=== PATIENT | male | born 1990 | race Two or more races ===

== ENCOUNTER 2016-08-20 21:25 | Emergency (ER) | payer MEDICAID ==
[~2016-08-20] VITALS: Ht 182.9 cm; Wt 79.4 kg
[2016-08-20] MEDS ORDERED: TdaP Vaccine 0.5ml Syr IM ONE (21:30)
[2016-08-20] MEDS ORDERED: ceFAZolin 1gm/50ml Premix 50 ML IVPB ONE (21:30)
[2016-08-20] MEDS ORDERED: Morphine Sulfate 4mg/ml Inj IVP ONE (21:30)
[2016-08-20] MEDS ORDERED: Ketorolac 30mg Inj IM ONE (21:30)
[2016-08-20 21:34] VITALS: BP 119/55
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
[2016-08-20 22:02] LABS: BASOPHILS % (AUTO) 1.3 % (0.0-2.0); EOSINOPHILS % (AUTO) 2.9 % (0.0-3.0); LYMPHOCYTES % (AUTO) 45.3 % (20.0-45.0); MEAN CORPUSCULAR HEMOGLOBIN 29.8 PG (27.0-31.0); MEAN CORPUSCULAR VOLUME 90 FL (80-99); MEAN PLATELET VOLUME 7.5 FL (6.5-10.1); MONOCYTES % (AUTO) 6.1 % (1.0-10.0); NEUTROPHILS % (AUTO) 44.4 % (45.0-75.0); PLATELET COUNT 206 K/UL (150-450); RED BLOOD COUNT 5.19 M/UL (4.70-6.10); RED CELL DISTRIBUTION WIDTH 12.6 % (11.6-14.8); WHITE BLOOD COUNT 11.4 K/UL (4.8-10.8)
[2016-08-20 22:15] LABS: INR 1.2 (0.9-1.1); PROTHROMBIN TIME 12.7 SEC (9.30-11.50)
[2016-08-20 22:36] LABS: ALANINE AMINOTRANSFERASE 10 U/L (3-41); ALBUMIN/GLOBULIN RATIO 1.8 (1.0-2.7); ANION GAP 15 (5-15); ASPARTATE AMINO TRANSFERASE 18 U/L (5-40); CALCIUM 9.1 mg/dL (8.6-10.2); CARBON DIOXIDE 27 mEQ/L (20-30); CHLORIDE 99 mEQ/L (98-107); CREATININE 0.8 mg/dL (0.7-1.2); GLOMERULAR FILTRATION RATE > 60 mL/min (>60); HEMOLYSIS 10; POTASSIUM 3.8 mEQ/L (3.4-4.9); SODIUM 141 mEQ/L (135-145); TOTAL PROTEIN 7.2 g/dL (6.6-8.7)
[2016-08-20 23:03] VITALS: BP 129/75
[2016-08-20] MEDS ORDERED: NKM (23:43)
[2016-08-21] VITALS (8 sets, daily range): BP systolic 110–123; BP diastolic 53–74
[2016-08-21] MEDS ORDERED: Lidocaine 1% Plain 30 ml INJ ONE (01:20)
[2016-08-21] MEDS ORDERED: Lidocaine 1% MPF 10mg/ml 5ml INJ ONE (01:30)
[2016-08-21] MEDS ORDERED: Surgicel 4in x 8in TOPIC ONE ×2 (04:15→07:29)
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
== END 2016-08-21 10:48 | disposition short-term general hospital (02) ==
LOC: EMR 21:38 → EDBEDREQ 08-21 07:21 → 4E 08-21 07:28 → UNDOADMIN 08-21 07:28 → EDBEDREQ 08-21 08:27 → CANBEDREQ 08-21 08:50 → EMR 08-21 10:48
DX: S92.312B Displaced fracture of first metatarsal bone, left foot, initial encounter for open fracture (principal); X95.9XXA Assault by unspecified firearm discharge, initial encounter; Y92.9 Unspecified place or not applicable; Z23 Encounter for immunization; F17.200 Nicotine dependence, unspecified, uncomplicated; M79.5 Residual foreign body in soft tissue
CPT/HCPCS: 36415; 80053; 85025; 85610; 85730; 86850; 86900; 86901; 87070; 87205; 90471; 90715; 96372; 96374; 96375; J2405

== ENCOUNTER 2016-11-26 20:25 | Emergency (ER) | payer MEDICAID, OTHER ==
[~2016-11-26] VITALS: Ht 185.4 cm; Wt 77.1 kg
[~2016-11-26 20:25] MED LIST: NKM
[2016-11-26] MEDS ORDERED: Lidocaine 2% Visc 15ml soln ORAL ONE (20:45)
[2016-11-26] MEDS ORDERED: Lidocaine 1% MPF 10mg/ml 5ml INJ ONE (20:45)
--- NOTE | 2016-11-26 21:12 | Emergency Room Report ---
History of Present Illness General Chief Complaint: Sore Throat Source: Patient Present Illness HPI 26 y/o male c/o sore throat x 3 days. Assoc sxs include sore throat with difficulty swallowing saliva. No other physical complaints or modifying factors. Not taking any current medications. Denies any current n/v/f/c/d, abd pain, back pain, neck pain, photophobia, phonophobia, CP, SOB or headache. Allergies: Coded Allergies: No Known Allergies (Unverified , 08/20/16) Patient History Past Medical History: see triage record Past Surgical History: none Pertinent Family History: none Immunizations: UTD Reviewed Nursing Documentation: PMH: Agreed, PSxH: Agreed Nursing Documentation-PMH Past Medical History: No Stated History Hx Asthma: Yes Review of Systems All Other Systems: negative except mentioned in HPI Physical Exam Vital Signs Date Time Temp Pulse Resp B/P Pulse Ox O2 Delivery O2 Flow Rate FiO2 11/26/16 20:32 99.7 98 16 120/81 97 Room Air Sp02 EP Interpretation: reviewed, normal General Appearance: no apparent distress, alert, GCS 15, non-toxic, other - uncomfortable Head: normocephalic, atraumatic Eyes: bilateral eye PERRL, bilateral eye normal inspection ENT: hearing grossly normal, no angioedema, other - uvula deviates to the left with peritonsilar abscess present on right side. No trismus. Neck: normal inspection Respiratory: chest non-tender, lungs clear, normal breath sounds, speaking full sentences Cardiovascular #1: regular rate, rhythm, no edema Neurologic: alert, oriented x3, responsive, motor strength/tone normal, sensory intact Psychiatric: judgement/insight normal, memory normal, mood/affect normal, no suicidal/homicidal ideation Skin: normal color, no rash, warm/dry, well hydrated Procedures Additional Procedure Procedure Narrative Under sterile conditions and going over risks and benefits and verbal consent obtained, numbed area with viscous lidocaine gargle. Approximately 2cc of lidocaine 1% without epi was injected with 27g 1" needle with sheath still on and 1cm removed from tip to act as guide to protect carotid artery was inserted into abscess. An 18g needle that had sheath with 1cm removed from tip to act as protective stopper from penetrating carotid artery was then advanced into the abscess and scant amount of purulent fluid was aspirated from abscess. Multiple attempts to aspirate additional fluid was completed without success.The patient was instructed in post procedure care. Patient tolerated procedure well w/ minimal blood loss. Medical Decision Making PA Attestation Dr. Sierra is my supervising physician with whom patient management has been discussed with. Diagnostic Impression: Primary Impression: Peritonsillar abscess ER Course Pt. presents to the ED c/o sore throat Ddx considered but are not limited to viral pharyngitis, bacterial pharyngitis, peritonsillar abscess, tonsils stone and meningitis Vital signs: are WNL, pt. is afebrile H&PE are most consistent with peritonsilar abscess ORDERS: Clindamycin 900mg, Solu-medrol 125mg, 30mg Toradol, Viscous Lidocaine and 1% Lidocaine w/o epi for anesthesia. ED INTERVENTIONS: Aspiration of Abscess. DISCHARGE: At this time pt. is stable for d/c to home. Will provide printed patient care instructions, and any necessary prescriptions. Care plan and follow up instructions have been discussed with the patient prior to discharge. Last Vital Signs Date Time Temp Pulse Resp B/P Pulse Ox O2 Delivery O2 Flow Rate FiO2 11/26/16 20:32 99.7 98 16 120/81 97 Room Air Disposition: HOME, SELF-CARE Condition: Stable Scripts Clindamycin Hcl (CLINDAMYCIN HCL) 300 Mg Capsule 300 MG ORAL TID for 10 Days, #30 CAP Prov: MARGARITO ZHENG 11/26/16 Patient Instructions: Peritonsillar Abscess Additional Instructions: Take medication as directed. Advised patient to use salt water gargle PRN. Advised patient to use chloraseptic as needed for throat pain in addition to APAP Q4H. Patient advised they can take Ibuprofen and Tylenol Q6H together for fever control as well. If sxs worsen or don't improve, please return sooner. Go to the ER if you develop SOB, CP, Rash, photophobia, neck pain, throat swelling occur, go to the ER immediately. MARGARITO ZHENG November 26, 2016 21:11
[2016-11-26 21:15] VITALS: BP 139/82
[2016-11-26] MEDS ORDERED: Solu-MEDROL 125mg Inj IVP ONE (21:15)
[2016-11-26] MEDS ORDERED: Ketorolac 30mg Inj IV ONE (21:15)
[2016-11-26] MEDS ORDERED: Clindamycin 900mg 50 ML IVPB ONE (21:15)
[2016-11-26] MEDS ORDERED: CLINDAMYCIN HC300 MG ORAL (21:30)
[2016-11-26 22:15] VITALS: BP 123/63
== END 2016-11-26 22:15 | disposition home or self-care (01) ==
LOC: EMR 21:19
DX: J36 Peritonsillar abscess (principal); J45.909 Unspecified asthma, uncomplicated
CPT/HCPCS: 10060; 96374; 96375; 99284; J1885; J2930; S0077

== ENCOUNTER 2017-09-07 19:47 | Emergency (ER) | payer OTHER ==
[~2017-09-07] VITALS: Ht 182.9 cm; Wt 79.4 kg
[~2017-09-07 19:47] MED LIST changes: +CLINDAMYCIN HC300 MG ORAL
[2017-09-07] MEDS ORDERED: cefTRIAXone 1 GM in NS 55 ML IVPB ONE (20:15)
[2017-09-07] MEDS ORDERED: Dexamethasone 4mg/ml vial IVP ONE (20:15)
[2017-09-07] MEDS ORDERED: Hurricaine 20% Spray ORO ONE (20:15)
[2017-09-07] MEDS ORDERED: Lidocaine 1% 10mg/ml/Epi 0.005mg/ml 30ml vial INJ ONE (20:15)
[2017-09-07] MEDS ORDERED: Lidocaine 2% Visc 15ml soln ORAL ONE (20:30)
--- NOTE | 2017-09-07 21:21 | Emergency Room Report ---
History of Present Illness General Chief Complaint: Sore Throat Source: Patient Present Illness HPI 7 days of worsening R throat pain and swelling. Feverish and pain with swallowing. Change in voice. Pain rated 8/10, constant, burning and pressure, radiates slightly towards ear and neck. Able to swallow fluids. Salt water gargles not help. Had SPRINKLING SYSTEM IRRIGATOR last year. Aspirated but "nothing came out". No cough, dyspnea, neck stiffness, change vision, NVD, dysuria, diabetes, rashes , joint pain. Allergies: Coded Allergies: OXYCODONE (Verified Allergy, Unknown, 09/07/17) itchy Patient History Past Medical History: see triage record Social History: Reports: smoking Social History Narrative [employer] (works outside) Reviewed Nursing Documentation: PMH: Agreed, PSxH: Agreed Nursing Documentation-PMH Hx Asthma: Yes - bronchitis Review of Systems All Other Systems: negative except mentioned in HPI Physical Exam Vital Signs Date Time Temp Pulse Resp B/P (MAP) Pulse Ox O2 Delivery O2 Flow Rate FiO2 09/07/17 19:50 100.5 104 18 128/79 98 Room Air 100.6 Sp02 EP Interpretation: reviewed, normal General Appearance: well appearing, no apparent distress, GCS 15, non-toxic Head: normocephalic Eyes: bilateral eye normal inspection, bilateral eye PERRL ENT: TMs + canals normal, moist mucus membranes, tonsillar swelling, pharyngeal erythema, other - SPRINKLING SYSTEM IRRIGATOR R Neck: full range of motion, supple, no meningismus Respiratory: lungs clear, normal breath sounds Cardiovascular #1: regular rate, rhythm Cardiovascular #2: 2+ radial (R) Gastrointestinal: normal inspection, normal bowel sounds, non tender, no mass, non-distended Musculoskeletal: back normal, gait/station normal, normal range of motion Neurologic: alert, oriented x3, grossly normal Psychiatric: mood/affect normal Skin: normal inspection, no rash, warm/dry Procedures Incision and Drainage Incision and Drainage : Consent: Verbal Blade Size: 11 Wound Location: other - R tonsil Wound's Depth, Shape: other - tonsilar tissue Wound Explored: contaminated - pus drained Anesthesia: Lidocaine w/ Epi Volume Anesthetic (ccs): 1 Patient Tolerated: Well Complications: None Progress After H2O2 prep, 1% lido with epi with 27 ga needle. Attempt aspirate with 18 ga spinal needle (only .5 ml obtained of pus). More lidocaine used and tonsil incised. Pus obtained. Used Kellys to open and express more pus. Tolerated fairly well (some gagging). Rinsed with H2O2. Improved voice and pain after procedure. Medical Decision Making Diagnostic Impression: Primary Impression: Peritonsillar abscess ER Course Patient with peritonsilar abscess. Needs I and D and also antibiotics. Will also give IV hydration. Also will give dose of decadron. See procedure note. Improved with treatment. Instructed to return if swelling recurs or not doing well. Patient stable for outpatient observation and treatment. Last Vital Signs Date Time Temp Pulse Resp B/P (MAP) Pulse Ox O2 Delivery O2 Flow Rate FiO2 09/07/17 22:10 97.3 94 18 139/82 100 Room Air 97.3 Status: improved Disposition: HOME, SELF-CARE Condition: Improved Scripts Ibuprofen* (MOTRIN*) 600 Mg Tablet 600 MG ORAL Q6H Y for For Pain, #20 TAB Prov: Daniel Garvey M.D. 09/07/17 Hydrocodone Bit/Acetaminophen 5-325* (NORCO 5-325*) 1 Each Tablet 1 TAB ORAL Q6H Y for For Pain, #10 TAB 0 Refills Prov: Daniel Garvey M.D. 09/07/17 Amoxicillin/Potassium Clav 500-125 Tablet* (AUGMENTIN 500-125 TABLET*) 1 Each Tablet 1 TAB ORAL THREE TIMES A DAY, #21 TAB Prov: Daniel Garvey M.D. 09/07/17 Referrals: [facility],REFERRING (PCP) Daniel Garvey M.D. Sep 07, 2017 21:21
[2017-09-07 21:50] VITALS: BP 139/82
[2017-09-07] MEDS ORDERED: AUGMENTIN 500-1 EACH ORAL (21:50)
[2017-09-07] MEDS ORDERED: NORCO 5-325 TA1 EACH ORAL (21:50)
[2017-09-07] MEDS ORDERED: IBUPROFEN600 MG ORAL (21:50)
[2017-09-07 22:10] VITALS: BP 139/82
== END 2017-09-07 22:10 | disposition home or self-care (01) ==
LOC: EMR 20:20
DX: J36 Peritonsillar abscess (principal); J45.909 Unspecified asthma, uncomplicated
CPT/HCPCS: 10060; 96361; 96365; 96375; 99284; J0696; J1100; 96374

== ENCOUNTER 2017-12-03 23:47 | Emergency (ER) | payer OTHER ==
[~2017-12-03] VITALS: Ht 182.9 cm; Wt 80.7 kg
[~2017-12-03 23:47] MED LIST changes: +AUGMENTIN 500-1 EACH ORAL; +IBUPROFEN600 MG ORAL; +NORCO 5-325 TA1 EACH ORAL
[2017-12-03 23:56] VITALS: BP 120/73
[2017-12-04] MEDS ORDERED: GABAPENTIN100 MG ORAL (00:29)
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
[2017-12-04 00:32] VITALS: BP 0/0
== END 2017-12-04 00:32 | disposition home or self-care (01) ==
LOC: EMR 12-04 00:18
DX: G57.92 Unspecified mononeuropathy of left lower limb (principal)
CPT/HCPCS: 99283

== ENCOUNTER 2018-05-03 00:12 | Emergency (ER) | payer OTHER ==
[~2018-05-03] VITALS: Ht 182.9 cm; Wt 83.9 kg
[~2018-05-03 00:12] MED LIST changes: +GABAPENTIN100 MG ORAL
[2018-05-03 00:37] VITALS: BP 119/68
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
[2018-05-03] MEDS ORDERED: Norco 5mg/325mg tab ORAL ONE (01:15)
[2018-05-03 01:53] LABS: APPEARANCE,URINE CLEAR; BILIRUBIN, URINE NEGATIVE (NEGATIVE); GLUCOSE, URINE (UA) NEGATIVE (NEGATIVE); KETONES,URINE NEGATIVE (NEGATIVE); LEUKOCYTE ESTERASE ,URINE NEGATIVE (NEGATIVE); NITRITE,URINE NEGATIVE (NEGATIVE); PH,URINE 6 (4.5-8.0); PROTEIN,URINE NEGATIVE (NEGATIVE); UROBILINOGEN,URINE NORMAL MG/DL (0.0-1.0)
[2018-05-03 01:55] LABS: COLOR,URINE YELLOW
[2018-05-03 02:00] VITALS: BP 117/65
[2018-05-03] MEDS ORDERED: Bacitracin Oint UD TOPIC ONE (03:30)
[2018-05-03] MEDS ORDERED: IBUPROFEN600 MG ORAL (03:57)
[2018-05-03 04:02] VITALS: BP 114/61
--- NOTE | 2018-05-03 09:23 | Diagnostic Imaging Report ---
Indication: Abdominal pain Technique: Continuous helical transaxial imaging of the abdomen and pelvis was obtained from the lung bases to the pubic symphysis. No intravenous contrast was administered. Coronal 2-D reformats were also obtained. Automatic Exposure Control was utilized. Total Dose length Product (DLP): 710.[address] Dose Index Volume (CTDIvol): 12.37 mGy Comparison: none Findings: The lung bases are clear. Evaluation of solid organs is limited on noncontrast imaging. That said no obvious injury of the liver or other solid organs identified. No free fluid seen. Unopacified colon and small bowel appear grossly unremarkable. There is no hydronephrosis. IMPRESSION: No acute findings. Limited evaluation. [facility] has communicated the preliminary results to the Emergency Department. Their findings are largely concordant with this report. The CT scanner at [facility] is accredited by the [employer] and the scans are performed using dose optimization techniques as appropriate to a performed exam including Automatic Exposure control.
--- NOTE | 2018-05-03 13:01 | Diagnostic Imaging Report ---
Indication: Right hand pain Findings: 3 views of the right hand were obtained. Normal bony mineralization and alignment are demonstrated. No acute fractures, erosions, or periosteal reaction are seen. Soft tissues are unremarkable. Impression: No acute findings.
--- NOTE | 2018-05-03 13:01 | Diagnostic Imaging Report ---
Indication: left hand pain. Findings: 3 views of the left hand were obtained. Normal alignment is demonstrated. No acute fractures, erosions, or periosteal reaction are seen. Soft tissues are unremarkable. Impression: No acute findings.
--- NOTE | 2018-05-03 13:04 | Diagnostic Imaging Report ---
Indication: Pain Knee pain/trauma 3 views of the right knee were obtained. Findings: No acute fracture, malalignment, or joint effusion are identified. Joint space is relatively well-maintained. There is mild anterior soft tissue swelling. Impression: No acute fracture. Mild anterior soft tissue swelling
--- NOTE | 2018-05-03 13:06 | Diagnostic Imaging Report ---
Indication: Knee Pain 3 views of the left knee were obtained. Findings: No acute fracture, malalignment, or joint effusion are identified. Joint space is relatively well-maintained. Impression: Negative for acute injury
== END 2018-05-03 04:02 | disposition home or self-care (01) ==
LOC: EMR 00:36
DX: S30.1XXA Contusion of abdominal wall, initial encounter (principal); S60.222A Contusion of left hand, initial encounter; S60.221A Contusion of right hand, initial encounter; S80.01XA Contusion of right knee, initial encounter; S80.02XA Contusion of left knee, initial encounter; S60.512A Abrasion of left hand, initial encounter; S60.511A Abrasion of right hand, initial encounter; S80.212A Abrasion, left knee, initial encounter; S80.211A Abrasion, right knee, initial encounter; V00.831A Fall from motorized mobility scooter, initial encounter; Y92.89 Other specified places as the place of occurrence of the external cause
CPT/HCPCS: 74176; 81003; 99284

== ENCOUNTER 2018-06-26 23:41 | Emergency (ER) | payer OTHER ==
[~2018-06-26] VITALS: Ht 182.9 cm; Wt 79.4 kg
[2018-06-26] MEDS ORDERED: NKM (23:48)
[2018-06-27 00:01] VITALS: BP 119/75
[2018-06-27] MEDS ORDERED: NYSTATIN15 GM TOPIC (00:23)
[2018-06-27] MEDS ORDERED: CIPROFLOXACIN500 M2 ORAL (00:23)
[2018-06-27 00:30] VITALS: BP 119/75
[2018-06-27 00:33] LABS: APPEARANCE,URINE CLEAR; BILIRUBIN, URINE NEGATIVE (NEGATIVE); COLOR,URINE PALE YELLOW; GLUCOSE, URINE (UA) NEGATIVE (NEGATIVE); KETONES,URINE NEGATIVE (NEGATIVE); LEUKOCYTE ESTERASE ,URINE 1+ (NEGATIVE); NITRITE,URINE NEGATIVE (NEGATIVE); PH,URINE 8 (4.5-8.0); PROTEIN,URINE NEGATIVE (NEGATIVE); UROBILINOGEN,URINE 1 MG/DL (0.0-1.0)
--- NOTE | 2018-06-27 01:28 | Emergency Room Report ---
History of Present Illness General Chief Complaint: Male Urogenital Problems Source: Patient Present Illness HPI Patient is a 27-year-old male who presented after increased hematuria. Patient reports having intermittent episodes where he began having increased blood in his urine. He reports having no pain. He reports having increased hematuria with termination of urination primarily he additionally reports having increased the discomfort to his foreskin area. He reports having increased cheesy-like discharge. Allergies: Coded Allergies: OXYCODONE (Verified Allergy, Unknown, 09/07/17) itchy Patient History Past Medical History: see triage record Reviewed Nursing Documentation: PMH: Agreed; PSxH: Agreed Review of Systems All Other Systems: negative except mentioned in HPI Physical Exam Vital Signs Date Time Temp Pulse Resp B/P (MAP) Pulse Ox O2 Delivery O2 Flow Rate FiO2 06/26/18 23:45 98.1 59 16 119/75 95 Room Air General Appearance: well appearing, no apparent distress, alert, GCS 15 Head: normocephalic, atraumatic ENT: hearing grossly normal, normal voice Neck: full range of motion, supple Respiratory: no respiratory distress, speaking full sentences Gastrointestinal: normal inspection, non tender Genitourinary: normal inspection, other - uncircumcised with white yellow material under foreskin Musculoskeletal: normal inspection, back normal Neurologic: normal inspection, alert, oriented x3, responsive, normal gait Psychiatric: mood/affect normal Skin: no rash Medical Decision Making Diagnostic Impression: Primary Impression: Balanitis Additional Impression: Hematuria of undiagnosed cause ER Course Patient presented for hematuria. Differential diagnosis included was not limited to renal stone, cancer, coagulopathy, epididymitis, orchitis among others. Patient has a benign exam and does not appear to require any further imaging or laboratory testing at this time. The patient does not show any evidence of gross hematuria at this time. The urinalysis showed evidence of microscopic hematuria. The patient was noted to have symptoms primarily during ejaculation and termination of urination consistent with the problem with the seminal vesicle or prostate. The patient is advised urology follow-up for further evaluation. The patient be empiric which treated with ciprofloxacin and the may require further imaging was advised of this.The patient does not have any evidence of torsion at this time Labs Test 06/27/18 00:25 Urine Color Pale yellow Urine Appearance Clear Urine pH 8 (4.5-8.0) Urine Specific [place] 1.010 (1.005-1.035) Urine Protein Negative (NEGATIVE) Urine Glucose (UA) Negative (NEGATIVE) Urine Ketones Negative (NEGATIVE) Urine Blood 5+ (NEGATIVE) Urine Nitrite Negative (NEGATIVE) Urine Bilirubin Negative (NEGATIVE) Urine Urobilinogen 1 MG/DL (0.0-1.0) Urine Leukocyte Esterase 1+ (NEGATIVE) Urine RBC Tntc /HPF (0 - 0) Urine WBC 0-2 /HPF (0 - 0) Urine Squamous Epithelial Cells None /LPF (NONE/OCC) Urine Bacteria Few /HPF (NONE) Last Vital Signs Date Time Temp Pulse Resp B/P (MAP) Pulse Ox O2 Delivery O2 Flow Rate FiO2 06/26/18 23:45 98.1 59 16 119/75 95 Room Air Status: improved Disposition: HOME, SELF-CARE Condition: Stable Scripts Ciprofloxacin Hcl* (CIPROFLOXACIN HCL*) 500 Mg Tablet 500 MG ORAL Q12H, #14 TAB 0 Refills Prov: Brandt Navarro MD 06/27/18 Nystatin* (NYSTATIN*) 15 Gm Cream..g. 1 APPLIC TOPIC TWICE A DAY, #30 GM Prov: Brandt Navarro MD 06/27/18 Patient Instructions: Hematuria, Adult Additional Instructions: Follow up with you primary care physician for urology referral. Brandt Navarro MD Jun 27, 2018 01:28
== END 2018-06-27 00:30 | disposition home or self-care (01) ==
LOC: EMR 23:54
DX: N48.1 Balanitis (principal); R31.9 Hematuria, unspecified
CPT/HCPCS: 81003; 99283